=== PATIENT | female | born 1995 | race Two or more races ===

== ENCOUNTER 2025-10-13 20:12 | Emergency (ER) | payer OTHER ==
[~2025-10-13] VITALS: Ht 157.5 cm; Wt 70.3 kg
[2025-10-13] MEDS ORDERED: SODIUM CHLORIDE 0.45 % 1,000 ML IV ONE (21:00)
[2025-10-13] MEDS ORDERED: 0.9 % SODIUM CHLORIDE 1,000 ML IV ONE (21:00)
[2025-10-13] MEDS ORDERED: FAMOTIDINE/PF 20 MG/2 ML VIAL IV ONE (21:00)
[2025-10-13] MEDS ORDERED: ONDANSETRON HCL 2 MG/ML VIAL IV ONE (21:00)
[2025-10-13] MEDS ORDERED: KETOROLAC TROMETHAMINE 30 MG VIAL IV ONE (21:00)
[2025-10-13] MEDS ORDERED: KETOROLAC TROMETHAMINE 30 MG VIAL ONE (21:22)
[2025-10-13] MEDS ORDERED: ONDANSETRON HCL 2 MG/ML VIAL ONE (21:22)
[2025-10-13] MEDS ORDERED: FAMOTIDINE/PF 20 MG/2 ML VIAL ONE (21:23)
[2025-10-13 23:25] LABS: BASO % 0.1 % (0.1-1.2); EOS # 0.06 (0.04-0.54); EOS % 0.4 % (0.7-7.0); LYMPH # 1.36 (1.18-3.74); LYMPH % 9.1 % (19.3-53.1); MEAN PLATELET VOLUME 10.00 fl (9.4-12.4); MONO # 0.76 (0.24-0.82); MONO % 5.1 % (4.7-12.5); NEUT # 12.69 (1.56-6.13); NEUT % 84.8 % (34.0-71.1); RED CELL DISTRIBUTION WIDTH 12.2 % (11.6-14.4)
[2025-10-13 23:41] LABS: ALT/SGPT 26.0 U/L (12-78); AST/SGOT 25.0 U/L (15-37); BILIRUBIN TOTAL 0.67 mg/dL (0.3-1.2); BUN CREA RATIO 18.0 (7.0-25.0); CREATININE SERUM 0.5 mg/dL (0.55-1.02); GFR 145.87; GLOBULINA 3.8 G/DL (2.4-3.5); GLUCOSE FASTING 106.0 mg/dL (65-100); OSMOLALITY SERUM 282.0 MOSM/KG (275-295)
[2025-10-14 02:35] LABS: URINE APPEARANCE Clear; URINE BILIRRUBIN Negative (NEGATIVE); URINE BLOOD NHT; URINE COLOR Yellow; URINE GLUCOSE Negative (NEGATIVE); URINE LEUKOCYTE Small; URINE NITRATE Negative; URINE PROTEIN Trace (NEGATIVE); URINE UROBILINOGEN 1.0 E.U./dl
[2025-10-14 02:38] LABS: URINE EPITHELIAL CELLS 39.2 uL (0.0-38.8); URINE RBC 21.1 uL (0.0-20.8); URINE WBC 55.5 uL (0.0-23.2)
[2025-10-14 02:43] LABS: URINE BACTERIA > 9821.5 uL (0.0-1933); URINE CAST 0.00 uL (0.0-1.40); URINE KETONE 40 (NEGATIVE)
== END 2025-10-14 04:05 | disposition home or self-care (01) ==
LOC: ER 20:12
PROVIDERS: General Practice
DX: K59.00 Constipation, unspecified (principal); R10.9 Unspecified abdominal pain